=== PATIENT | female | born 1955 | race Caucasian/White ===

== ENCOUNTER 2018-09-16 20:35 | Observation (INO) ==
[2018-09-17 03:27] LABS: Basophils # 0.1 K/mcL (0.0-0.2); Basophils % 0.7 %; Eosinophils # 0.2 K/mcL (0.0-0.6); Eosinophils % 2.4 %; Hematocrit 44.3 % (35.3-44.9); Hemoglobin 14.2 g/dL (11.5-15.4); Immature Granulocytes % 0.2 % (0-4); Lymphocytes # 2.4 K/mcL (0.6-4.6); Lymphocytes % 28.6 %; Mean Corpuscular HGB Conc 32.1 g/dL (31.6-35.5); Mean Corpuscular Hemoglobin 28.9 pg (28.0-33.3); Mean Corpuscular Volume 90.2 fL (83.0-100.0); Mean Platelet Volume 10.5 fL (9.4-12.4); Monocytes # 0.7 K/mcL (0.0-1.3); Monocytes % 8.2 %; Platelet Count 242 K/mcL (140-400); Red Blood Count 4.91 M/mcL (3.82-4.97); Red Cell Distribution Width 14.8 % (11.5-14.5); Segmented Neutrophils % 59.9 %
[2018-09-17 03:47] LABS: Alanine Aminotransferase 13 Units/L (7-52); Albumin 4.2 g/dL (3.5-5.7); Albumin/Globulin Ratio 1.4 (1.1-2.2); Alkaline Phosphatase 71 Units/L (34-104); Aspartate Amino Transferase 14 Units/L (13-39); BUN/Creatinine Ratio 28 (6-26); Bilirubin,Total 0.3 mg/dL (0.3-1.0); Blood Urea Nitrogen 23 mg/dL (8-23); Calcium 9.2 mg/dL (8.6-10.3); Carbon Dioxide 22 mEq/L (23-29); Chloride 106 mEq/L (98-107); Globulin 3.1 g/dL (2.4-3.5); Glucose 100 mg/dL (70-105); Osmolality,Calculated 292 (280-300); Phosphorous 2.9 mg/dL (2.7-4.5); Potassium 3.6 mEq/L (3.5-5.1); Sodium 139 mEq/L (136-145); Total Protein 7.3 g/dL (6.4-8.9); eGFR For Non-African Americans > 60 (> 60)
--- NOTE | 2018-09-17 03:48 | Internal Med History&Physical ---
Date of Encounter: 09/17/18 Time of Encounter: 03:29 Internal Medicine - H&P: HPI Chief complaint: Stroke/Seizure History of present illness: Ms. Vealzquez is a 62 year old female with a past medical history of hypertension, COPD, significant smoking history who presented to [facility] after seizure- like episode. Patient was in her usual state of health when around 3 PM while seated she began getting pain in the left side of her head and felt her heart beating in her head. She stated the symptoms gradually moved downward to involve her left arm and left leg. She slumped over and fell to the floor and began shaking uncontrollably. Episode was witnessed by her who stated that the episode lasted for about 5 minutes after which he stated that she appea red completely drained. Speech was slurred and patient had difficulty raising her left leg and left arm. Symptoms persisted for about an hour and a half after which time he stated that she was back to her baseline. Patient had another episode while at [facility] witnessed by the staff. Per their records, patient was able to follow commands during the seizure-like event. Again appear to have weakness one side following the event. No reports of loss of bowel or bladder control. Patient has no prior history of seizures. Laboratory workup at [facility] was unremarkable. Troponins were negative 2.. EKG obtained showed normal sinus rhythm without any ischemic changes. CTA of the head and neck showed no intracranial abnormality or significant lesions. Neurology was consulted and patient was given a loading dose of Keppra. Patient received loading dose of aspirin as well. Assessment patient was lying in bed in no acute distress. Patient appears to be back to baseline. Past Med Surg Social Fam HX - Past Medical History Medical history: diabetes, hypertension Psychiatric history: anxiety - Past Surgical History Surgical History: hysterectomy - Social History Smoking Status: Current every day smoker Packs per day: 1 pack Alcohol use: none Drug use: none - Family History Mother Living Status: Cause of : ruptured pancreas Father Living Status: Cause of : Mi Brother Living Status: Still Living Hx Family Cardiac Disorders: Yes Internal Medicine - H&P: Meds Cyclobenzaprine [Flexeril] 10 mg PO HS PRN 09/17/18 [History] Lisinopril [Zestril] 40 mg PO DAILY 09/17/18 [History] Sertraline [Zoloft] 100 mg PO DAILY 09/17/18 [History] traZODone [TraZODone] 50 mg PO HS PRN 09/17/18 [History] Allergy/AdvReac Type Severity Reaction Status Date / Time No Known Allergies Allergy Verified 09/17/18 00:54 All Systems PM: A 10-system review of systems was performed and is negative for pertinent findings except as documented above in the HPI. - Constitutional Constitutional: no chills, no fever(s), no night sweats - EENT Eyes: no change in vision, no discharge, no pain, no photophobia Ears: no ear discharge, no ear pain, no tinnitus Nose, mouth and throat: no dysphagia, no nasal discharge, no neck pain, no sore throat - Cardiovascular Cardiovascular ROS IM: no chest pain, no diaphoresis, no dyspnea, no lightheadedness, no palpitations, no syncope - Respiratory Respiratory: no cough, no dyspnea, no wheezing, no excessive phlegm production - Gastrointestinal Gastrointestinal: no abdominal pain, no diarrhea, no hematemesis, no hematochezia, no melena, no nausea, no vomiting - Genitourinary Genitourinary: no change in urinary stream, no dysuria, no flank pain, no hematuria - Musculoskeletal Musculoskeletal ROS IM: no numbness, no tingling - Integumentary Integumentary IM: no rash, no unusual bruising - Neurological Neurological ROS: no confusion, no convulsions, no focal weakness, no numbness, no tingling, no tremor(s) - Hematologic/Lymphatic Hematologic/Lymphatic: no easy bruising - Constitutional Vitals: Temp Pulse Resp BP Pulse Ox 97.6 F 66 14 143/75 98 09/17/18 00:33 09/17/18 00:33 09/17/18 00:33 09/17/18 00:33 09/17/18 00:33 Exam: General: Alert and oriented 3 Skin:Normal color, no rash, no lesions. HEENT:EOM, pupils equal, round and reactive. Cardiovascular:Normal S1 & S2, no rubs, murmurs or gallops. No JVD. Pulse regular. Lungs:Normal breath sounds, no wheezes or crackles. Abdomen:Soft, non-tender, no rigidity. Extremities:No deformity, no edema or tenderness, no joint swelling or clubbing. Neurological:Normal cognition and motor skills. Cranial nerves II through XII intact. No pronator drift. Muscle strength 5 out of 5 in the upper and lower extremities. Sensation intact throughout. Pulses:Carotid and radial pulses normal +2. Rest of the physical exam is non contributory Internal Med - H&P Results - Labs CBC & Chem 7: 09/17/18 02:31 09/17/18 02:31 - Assessment and Plan (1) Seizure Current Visit: Yes Status: Acute Assessment and plan: Patient presents with 2 episodes of seizure-like activity with history suggestive of post ictal weakness and confusion. Patient has no prior history of seizures. No recent reports of head trauma. CTA of the head negative. Patient received loading dose of Keppra per neurology recommendations. -Aspiration precautions/Seizure precautions -We will check CPK -Ativan as needed -We will obtain MRI of the brain -EEG -Neurology consult (2) TIA (transient ischemic attack) Current Visit: Yes Status: Acute Assessment and plan: Patient presents with left-sided weakness and slurred speech following and seizure-like activity. Patient received loading dose of aspirin. -Neurochecks -We will allow for permissive hypertension -Echocardiogram/bilateral carotid ultrasound -MRI of the brain without contrast -Neurology consult - (3) Smoking history Current Visit: Yes Status: Acute Assessment and plan: Patient has a 50 pack year smoking history. Counseled on smoking cessation. We will provide interim patch. (4) Hypertension Current Visit: Yes Status: Acute Assessment and plan: Hold antihypertensives now to allow for permissive hypertension. Qualifiers: Hypertension type: essential hypertension Qualified Code(s): I10 - Essential (primary) hypertension (5) DVT prophylaxis Current Visit: Yes Status: Acute Assessment and plan: Subcutaneous heparin - Time Spent With Patient Total time spent is greater than 50% in coordination of care (as documented) at patient's floor/unit and/or counseling patient:
[2018-09-17] MEDS ORDERED: Naloxone 0.4 MG/ML INJ IVP PRN (04:22)
[2018-09-17 05:33] LABS: Chol/HDL Ratio 6.7 (0-4.9); Cholesterol 254 mg/dL (< 200); HDL Cholesterol 38 mg/dL (40-59); LDL Cholesterol,Calculated 170 mg/dL (0-99); LDL Cholesterol,Direct 181 mg/dL (75-193); Triglycerides 229 mg/dL (< 150)
[2018-09-17 06:46] LABS: Creatine Kinase 151 Units/L (30-223)
[2018-09-17 07:17] LABS: Estimated Average Glucose 140 mg/dl; Hemoglobin A1C 6.5 %
[2018-09-17 08:17] LABS: Bilirubin,Urine Negative (Negative); Blood,Urine Negative (Negative); Clarity,Urine Clear (Clear); Color,Urine Yellow (Yellow); Glucose,Urine (UA) Normal (Normal); Ketones,Urine Negative (Negative); Leukocyte Esterase,Urine Negative (Negative); Nitrite,Urine Negative (Negative); Protein,Urine Negative (Neg-Trace); Specific Gravity,Urine 1.024 (1.010-1.025); Urobilinogen,Urine Normal (Normal)
[2018-09-17] MEDS: Nicotine 14 MG PATCH.TD24 TD SCH (08:54)
[2018-09-17 08:59] LABS: Amphetamine Screen,Urine Negative ng/mL (Cutoff=1000); Barbiturate Screen,Urine Negative ng/mL (Cutoff=200); Benzodiazepines Screen,Urine Negative ng/mL (Cutoff=200); Cannabinoid Screen,Urine Negative ng/mL (Cutoff = 50); Cocaine Screen,Urine Negative ng/mL (Cutoff= 300); Opiate Screen,Urine Negative ng/mL (Cutoff=300); Phencyclidine Screen,Urine Negative ng/mL (Cutoff=25)
--- NOTE | 2018-09-17 10:08 | Neurology - Consult Note ---
Date of Encounter: 09/17/18 Time of Encounter: 15:53 Assessment and Plan (1) Seizure Current Visit: Yes Status: Acute Neuro consulted for evaluation of seizure-like activity Cause of seizure-like activity unknown; no signs of SUPERVISORY IT SPECIALIST infection, UA negative, no leukocytosis and afebrile. No metabolic derangements. Urine tox unremarkable Consider partial simple seizure vs pseudoseizures No prior history of seizures, no family history of seizures Reporting to seizure events with tonic-clonic activity yesterday lasting approximately 3-4 minutes duration with a postictal phase each time approximately 1 hour Received Ativan and Keppra and no return of seizure activity Neurological exam is nonfocal and nonlateralizing. PLAN: C/W Ativan as needed for seizures C/W seizure precautions CC/W Keppra EEG completed-results pending Awaiting MRI, echocardiogram and carotid duplex scan (2) Left-sided weakness Current Visit: Yes Status: Acute Patient reporting left-sided weakness and paresthesias S/P seizure event MRI imaging reveals a b/l symmetric signal changes within the high frontop arietal lobes; may reflect subacute infarcts echo-pending carotid duplex-pending c/w neurological assessments per protocol Rec pt/ot consult ASA naive; start 81mg PO now Start statin now neurology will continue to follow History of Present Illness Chief complaint: Seizures HPI: Ms. Velazquez is a 62 year old female with a PMH of anxiety, obesity, DM 2 and HTN. Initially, she presented to [facility] after experiencing a seizure event at home. She reports experiencing one additional event while at [facility]. Patient seen and examined at bedside today. She is alert and oriented 3, all information obtained from chart review and the patient. She reports that yesterday around 3 PM she was seated and began to experiencing as she quotes "throbbing, like my heart beat in my head and my entire body" and then she reports that she fell on the floor and began to shake uncontrollably all over. This episode lasted approximately 3-4 minutes and was witnessed by her . Immediately after the episode she was lethargic and confused for approximately one hour. While at [facility] she experienced the same symptoms again lasting approximately 3-4 minutes with a 1 hour episode of lethargy and confusion which is likely a postictal state. Again, the prodrome of seizure activity was a throbbing sensation all over. In addition to the repeat seizure event she is also reporting paresthesias of the right hand and face. She denies any loss of consciousness. She reports that during the seizure activity she is able to speak and communicate and somewhat follow commands but it is difficult. She was given Ativan and loaded on Keppra. No return of seizures since admission to [facility]. She denies any seizure history. Review of systems positive for left-sided paresthesias and weakness, negative for chest pain, shortness of breath, palpitations, fevers, chills, muscular/joint aches/pains, urinary symptoms. EKG shows normal sinus rhythm. CT of the head negative for acute cranial abnormality Past Med Surg Social Fam HX - Past Medical History Medical history: diabetes, hypertension Psychiatric history: anxiety - Past Surgical History Surgical History: hysterectomy - Social History Smoking Status: Current every day smoker Packs per day: 1 pack Alcohol use: none Drug use: none - Family History Mother Living Status: Cause of : ruptured pancreas Father Living Status: Cause of : Mi Brother Living Status: Still Living Hx Family Cardiac Disorders: Yes Medications and Allergies Cyclobenzaprine [Flexeril] 10 mg PO HS PRN 09/17/18 [History] Lisinopril [Zestril] 40 mg PO DAILY 09/17/18 [History] Sertraline [Zoloft] 100 mg PO DAILY 09/17/18 [History] traZODone [TraZODone] 50 mg PO HS PRN 09/17/18 [History] Allergy/AdvReac Type Severity Reaction Status Date / Time No Known Allergies Allergy Verified 09/17/18 10:56 All Systems: The remainder of the systems were reviewed and are negative Review of Systems: Review of systems positive for left-sided paresthesias and weakness, negative for chest pain, shortness of breath, palpitations, fevers, chills, muscular/joint aches/pains, urinary symptoms. REVIEW OF SYSTEMS GENERAL: Negative for any nausea, vomiting, fevers, chills NEUROLOGIC: Negative for any blurry vision, blind spots, double vision, facial asymmetry, dysphagia, dysarthria, hemiparesis, hemisensory deficits, lightheadedness, headache Positive for seizure-like activity, left-sided paresthesias and weakness (paresthesias and weakness have resolved) PSYCH: Positive anxiety HEENT: Negative for any head trauma, neck trauma, neck stiffness, photophobia, phonophobia, tinnitus CARDIAC: Positive intermittent left-sided chest pressure, dyspnea, palpitations GENITOURINARY: Negative for any dysuria, hematuria, incontinence. Physical Examination - Vital Signs Vital Signs: Initial Vital Signs Temp Pulse Resp BP Pulse Ox 97.6 F 66 14 143/75 98 09/17/18 00:33 09/17/18 00:33 09/17/18 00:33 09/17/18 00:09/17/18 00:33 - Exam Exam: Examination: General Examination: *CONSTITUTIONAL: Alert and oriented x3, no acute distress *GENERAL APPEARANCE OF PATIENT appears healthy and well groomed *EYES: pupils equal, round, reactive to light and accommodation, conjunctiva clear *CARDIOVASCULAR no peripheral edema, distal temperature normal, dorsalis pedis pulses normal. See vital signs Musculoskeletal: *GAIT AND STATION normal, with normal Romberg testing, no abnormalities such as broad base gait or spasticity *ASSESSMENT OF MUSCLE STRENGTH IN THE UPPER AND LOWER EXTREMITIES bilateral deltoid, bicep, tricep, rigging loft repairer strength, hip flexors ,anterior tibialis, dorsoflexion of the foot 4/5 *MUSCLE TONE IN THE UPPER AND LOWER EXTREMITIES normal. No abnormal movements, fasciculations or atrophy identified. Neurological: *ORIENTATION to person, situation, time and place *RECURRENT AND REMOTE MEMORY intact *ATTENTION AND CONCENTRATION are normal *LANGUAGE FUNCTION no significant aphasia or dysarthia was noted. However, her speech is somewhat slow and drawn which is abnormal for the patient *FUND OF KNOWLEDGE aware of current events, past history, vocabulary *MENTAL attention span and concentration normal. *CN II optic fundi were normal, no papilledema noted. *CN III,IV, PERRLA extraocular eye movements were full, no nystagmus and no ptosis noted. *CN V shows normal sensation and jaw opens symmetrically. *CN VII shows normal facial movement symmetrically, upper and lower bilaterally. *CN VIII shows no significant hearing loss on exam *CN IX,,X palate elevated symmetrically *CN XI normal strength in the sternocleidomastoid muscles, symmetrical shoulder shrugging. *CN XII tongue protruded in the midline, with normal strength and movement. *SENSORY EXAMINATION light touch intact *REFLEXES: deep tendon reflexes were normal and symmetrical , grade 1/4 diffusely, no pathological reflexes were noted. *CEREBELLAR TESTING normal finger to nose, heel/knee/dumont *PAIN LEVEL 0/10 Results - Laboratory Findings CBC and BMP: 09/17/18 02:31 09/17/18 02:31 Abnormal lab findings: Abnormal lab results RDW 14.8 % (11.5-14.5) H 09/17/18 02:31 Carbon Dioxide 22 mEq/L (23-29) L 09/17/18 02:31 28 (6-26) H 09/17/18 02:31 6.5 % (-5.6) H 09/17/18 02:31 Triglycerides 229 mg/dL (< 150) H 09/17/18 02:31 Cholesterol 254 mg/dL (< 200) H 09/17/18 02:31 LDL Cholesterol, Calc 170 mg/dL (0-99) H 09/17/18 02:31 VLDL Cholesterol, Calc 46 mg/dL (< 31) H 09/17/18 02:31 38 mg/dL (40-59) L 09/17/18 02:31 6.7 (0-4.9) H 09/17/18 02:31 Consult Discharge Plan - Plan Referrals: NONE,PCP [Primary Care Provider] -
--- NOTE | 2018-09-17 10:52 | EEG/EMG/Oth Biometrics Report ---
EEG Procedure Report Date of procedure: 09/17/18 EEG Procedure: Routine EEG Procedure Note: Report: This EEG was acquired with standard international 10-20 electrode placement system with EKG recording. The background activity during this EEG was characterized by presence of alpha, theta and delta activity with best frequency up to 8 Hz. The background activity was reactive to eye openings and movements. Sleep stages were not identified during this tracing. There are no electrographic seizures identified during this tracing. There are no epileptiform discharged noted during this tracing. No focal slowing identified. Photic stimulation produced no abnormalities. HV not performed during this study. EKG tracing showed no significant cardiac dysarrhythmia. Impression: This is a mildly abnormal EEG due to presence of mild diffuse background slowing. Clinical Correlation: This EEG is consistent with mild diffuse cerebral dysfunction that can be seen in patients with mild encephalopathy, metabolic/toxic, inflammatory, electrolyte derangement or patients with cognitive impairment. Clinical correlation suggested.
--- NOTE | 2018-09-17 16:36 | Internal Med Progress Note ---
Hospitalist Progress Note - Encounter Date of Encounter: 09/17/18 Time of Encounter: 16:34 - Subjective Interval History: Ms. Velazquez is a 62 year old female with a past medical history of hypertension, COPD, significant smoking history who presented to [facility] after seizure- like episode. Patient was in her usual state of health when around 3 PM while seated she began getting pain in the left side of her head and felt her heart beating in her head. She stated the symptoms gradually moved downward to involve her left arm and left leg. She slumped over and fell to the floor and began shaking uncontrollably. Episode was witnessed by her who stated that the episode lasted for about 5 minutes after which he stated that she appeared completely drained. Speech was slurred and patient had difficulty raising her left leg and left arm. Symptoms persisted for about an hour and a half after which time he stated that she was back to her baseline. Patient had another episode while at [facility] witnessed by the staff. Per their records, patient was able to follow commands during the seizure-like event. EKG obtained showed normal sinus rhythm without any ischemic changes. CTA of the head and neck showed no intracranial abnormality or significant lesions. Pt was seen and exmained at bed side. She did mention she never lost consc iousness, remember the whole seizure episode. Denied any CP / SOB - Exam Vitals: Temp Pulse Resp BP Pulse Ox 98.8 F 74 20 164/85 96 09/17/18 16:06 09/17/18 16:06 09/17/18 16:06 09/17/18 16:06 09/17/18 16:06 Exam: Gen: Alert, awake, Oriented to time,place and person Chest: Diminished breath sounds B/L, No wheezing, No crackles, No rales Heart: S1S2+ RRR No murmurs Abd: Soft, NT, BS +, No organomegaly Ext: No edema, pulses are palpable, No calf tenderness Neuro : Benign findings Skin: No rash. - Assessment and Plan (1) Seizure Current Visit: Yes Status: Acute Assessment and Plan: questionable seizure not convinced with her presentation EEG showed encephalopathy changes Appreciate neurology recommendations (2) TIA (transient ischemic attack) Current Visit: Yes Status: Acute Assessment and Plan: Reviewed Brain MRI showed subacute infarcts in b/l frontal and parietal lobes will f/u on 2 D Echo and Carotid Doppler cont ASA and Statin Appreciate neurology recommendations (3) Smoking history Current Visit: Yes Status: Acute Assessment and Plan: Counseled to quit smoking placed on nicotine patch (4) DVT prophylaxis Current Visit: Yes Status: Acute Assessment and Plan: Subcutaneous heparin (5) Hypertension Current Visit: Yes Status: Acute Assessment and Plan: fairly controlled resumed all home meds - Time Spent with Patient Total time spent is greater than 50% in coordination of care (as documented) at patient's floor/unit and/or counseling patient: Internal Medicine: Result - Labs CBC & Chem 7: 09/17/18 02:31 09/17/18 02:31 Labs: Short CBC 09/17/18 Range/Units 02:31 WBC 8.4 (4.3-11.1) K/mcL Hgb 14.2 (11.5-15.4) g/dL Hct 44.3 (35.3-44.9) % Plt Count 242 (140-400) K/mcL Neutrophils # 5.0 (1.6-8.9) K/mcL BMP 09/17/18 02:31 Sodium 139 Potassium 3.6 Chloride 106 Carbon Dioxide 22 L BUN 23 Creatinine 0.81 Glucose 100 Calcium 9.2 Liver Function 09/17/18 Range/Units 02:31 Total Bilirubin 0.3 (0.3-1.0) mg/dL AST 14 (13-39) Units/L ALT 13 (7-52) Units/L Alkaline Phosphatase 71 (34-104) Units/L Albumin 4.2 (3.5-5.7) g/dL Urine 09/17/18 Range/Units 07:45 Urine Color Yellow (Yellow) Urine Clarity Clear (Clear) Urine pH 6.0 (5.0-8.0) pH Units Ur Specific [place] 1.024 (1.010-1.025) Urine Protein Negative (Neg-Trace) mg/dL Urine Glucose (UA) Normal (Normal) mg/dL - Impressions Impressions Brain MRI 09/17/18 04:23 IMPRESSION: Nonspecific, bilaterally symmetric signal changes within the high frontoparietal lobes. These could reflect subacute infarcts. Recommend repeating exam with IV contrast for further characterization. The findings were sent to the Radiology Results Communication Center at 2:56 pm on 09/17/2018to be communicated to a licensed caregiver. D/ / Moises Lancaster MD / Moiess Lancaster MD Interpreting Provider: Moises Lancaster MD Consult Discharge Plan - Plan Referrals: NONE,PCP [Primary Care Provider] - (5) Hypertension Qualifiers: Hypertension type: essential hypertension Qualified Code(s): I10 - Essential (primary) hypertension
--- NOTE | 2018-09-17 17:34 | Electrocardiograph Report ---
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
[2018-09-17] MEDS ORDERED: Perflutren Lipid Microsphere 1.3 ML in 0.9 % Sodium Chloride 8.7 ML IVP ONE (17:39)
[2018-09-17] MEDS: levETIRAcetam 250 MG TABLET PO SCH (18:28)
[2018-09-17] MEDS: Aspirin 81 MG TAB.CHEW PO SCH (18:28)
[2018-09-18] MEDS: levETIRAcetam 250 MG TABLET PO SCH (05:35)
[2018-09-18 06:55] LABS: Alanine Aminotransferase 15 Units/L (7-52); Albumin 4.6 g/dL (3.5-5.7); Albumin/Globulin Ratio 1.5 (1.1-2.2); Alkaline Phosphatase 81 Units/L (34-104); Aspartate Amino Transferase 15 Units/L (13-39); BUN/Creatinine Ratio 21 (6-26); Bilirubin,Total 0.4 mg/dL (0.3-1.0); Blood Urea Nitrogen 20 mg/dL (8-23); Calcium 10.2 mg/dL (8.6-10.3); Carbon Dioxide 25 mEq/L (23-29); Chloride 104 mEq/L (98-107); Glucose 118 mg/dL (70-105); Osmolality,Calculated 294 (280-300); Potassium 4.2 mEq/L (3.5-5.1); Sodium 140 mEq/L (136-145); Total Protein 7.6 g/dL (6.4-8.9); eGFR For Non-African Americans > 60 (> 60)
[2018-09-18 07:08] LABS: Estimated Average Glucose 137 mg/dl; Hemoglobin A1C 6.4 %
[2018-09-18] MEDS: Nicotine 14 MG PATCH.TD24 TD SCH (08:36)
[2018-09-18] MEDS: Aspirin 81 MG TAB.CHEW PO SCH (08:36)
[2018-09-18] MEDS ORDERED: traZODone 50 MG TABLET PO PRN (08:52)
[2018-09-18] MEDS ORDERED: Lisinopril 20 MG TABLET PO SCH (09:00)
--- NOTE | 2018-09-18 10:44 | Neurology Progress Note ---
Date of Encounter: 09/18/18 Time of Encounter: 10:38 Assessment and Plan (1) Seizure Status: Acute Neuro consulted for evaluation of seizure-like activity No prior history of seizures, no family history of seizures Reporting to seizure events with tonic-clonic activity yesterday lasting approximately 3-4 minutes duration with a postictal phase each time approximately 1 hour Neurological exam today continues to be nonfocal and nonlateralizing. No return of seizure-like activity PLAN: Okay to discontinue Keppra EEG completed was essentially a normal study (2) Left-sided weakness Status: Acute Patient reporting left-sided weakness and paresthesias MRI imaging reveals a b/l symmetric signal changes within the high frontoparietal lobes; may reflect subacute infarcts Findings concerning for embolic source No h/o a-fib echo-EF 60-65%, no PFO, no thrombus identified, no valvular dysfunction carotid duplex-patient appears to have 40-59% stenosis in the right ICA and other non-stenotic plaque bilaterally Recommend antiplatelet therapy with aspirin; will need Rx a DC C/W statin at discharge Neurological assessment today again reveals a slowed speech pattern but no significant dysarthria. Otherwise the neuro exam is nonfocal. She is continuing to progress back to baseline. She is okay to discharge at the discretion of the primary team. May benefit from cardiology follow-up and cardiac rhythm monitoring with concerns for possible embolic source involving stroke and left parietal cortex Plan has been discussed with primary team. Subjective Principal diagnosis: subacute infarct and seizures Interval history: Patient seen in follow-up for seizure-like activity and subacute CVA. Denies any return of seizure-like activity since admission. She denies any new neurological deficits and clinically, she remains stable overnight. Objective - Constitutional Vitals: Temp Pulse Resp BP Pulse Ox 98.3 F 81 16 133/81 95 09/18/18 07:17 09/18/18 07:17 09/18/18 07:17 09/18/18 07:17 09/18/18 07:17 Exam: Examination: General Examination: *CONSTITUTIONAL: Alert and oriented x3, no acute distress *GENERAL APPEARANCE OF PATIENT appears healthy and well groomed *EYES: pupils equal, round, reactive to light and accommodation, conjunctiva clear *CARDIOVASCULAR no peripheral edema, distal temperature normal, dorsalis pedis pulses normal. See vital signs Musculoskeletal: *GAIT AND STATION normal, with normal Romberg testing, no abnormalities such as broad base gait or spasticity *ASSESSMENT OF MUSCLE STRENGTH IN THE UPPER AND LOWER EXTREMITIES bilateral deltoid, bicep, tricep, unix architect strength, hip flexors ,anterior tibialis, dorsoflexion of the foot 4/5 *MUSCLE TONE IN THE UPPER AND LOWER EXTREMITIES normal. No abnormal movements, fasciculations or atrophy identified. Neurological: *ORIENTATION to person, situation, time and place *RECURRENT AND REMOTE MEMORY intact *ATTENTION AND CONCENTRATION are normal *LANGUAGE FUNCTION no significant aphasia or dysarthia was noted. However, speech remains slow and drawn which is abnormal for the patient *FUND OF KNOWLEDGE aware of current events, past history, vocabulary *MENTAL attention span and concentration normal. *CN II optic fundi were normal, no papilledema noted. *CN III,IV, PERRLA extraocular eye movements were full, no nystagmus and no ptosis noted. *CN V shows normal sensation and jaw opens symmetrically. *CN VII shows normal facial movement symmetrically, upper and lower bilaterally. *CN VIII shows no significant hearing loss on exam *CN IX,,X palate elevated symmetrically *CN XI normal strength in the sternocleidomastoid muscles, symmetrical shoulder shrugging. *CN XII tongue protruded in the midline, with normal strength and movement. *SENSORY EXAMINATION light touch intact *REFLEXES: deep tendon reflexes were normal and symmetrical , grade 1/4 diffusely, no pathological reflexes were noted. *CEREBELLAR TESTING normal finger to nose, heel/knee/dumont *PAIN LEVEL 0/10 Results - Laboratory Findings CBC and BMP: 09/17/18 02:31 09/18/18 06:16 Abnormal lab findings: Abnormal lab results RDW 14.8 % (11.5-14.5) H 09/17/18 02:31 Carbon Dioxide 22 mEq/L (23-29) L 09/17/18 02:31 28 (6-26) H 09/17/18 02:31 Glucose 118 mg/dL (70-105) H 09/18/18 06:16 POC Glucose 106 mg/dL (70-99) H 09/17/18 21:05 6.4 % (-5.6) H 09/18/18 06:16 Triglycerides 229 mg/dL (< 150) H 09/17/18 02:31 Cholesterol 254 mg/dL (< 200) H 09/17/18 02:31 LDL Cholesterol, Calc 170 mg/dL (0-99) H 09/17/18 02:31 VLDL Cholesterol, Calc 46 mg/dL (< 31) H 09/17/18 02:31 38 mg/dL (40-59) L 09/17/18 02:31 6.7 (0-4.9) H 09/17/18 02:31 Consult Discharge Plan - Plan Instructions: Ischemic Stroke (DC), Hemorrhagic Stroke (DC), Chronic Hypertension (DC) Referrals: Francisco Pereyra DO [Partnered Physician] - (Appointment has been requested. Our offices will call with an appointment time and date.) Cachorro Salgado DO [Partnered Physician] - (Appointment has been requested. Our offices will call with an appointment time and date. If you do not hear from us please call [phone], and schedule an appointment.) Bria Schmid MD [Partnered Physician] - (Appointment has been requested. Our offices will call you with an appointment time and date. If you do not hear from us, please call [phone] and schedule an appointment.) Prescriptions: RX: Aspirin 81 mg PO DAILY #30 tab.chew Atorvastatin Calcium [Lipitor] 80 mg PO HS #30 tab RX: Nicotine Patch [Nicoderm] 21 mg TD DAILY #30 patch.td24
[2018-09-18 11:37] VITALS: BP 153/73
--- NOTE | 2018-09-18 12:25 | Discharge Summary ---
- NOTES TO OUTPATIENT PROVIDER Notes to Outpatient Provider: f/u with PCP in one week. f/u with Neurology in 1-2 weeks. f/u with Cardiology in 2 weeks. Please wear event monitor for 4 weeks. Please quit smoking. Date of Encounter: 09/18/18 Time of Encounter: 12:22 - Discharge Diagnosis (1) TIA (transient ischemic attack) Priority: Primary Status: Acute (2) CVA (cerebrovascular accident) Priority: Secondary Status: Chronic Qualifiers: CVA mechanism: embolism Precerebral and cerebral artery: unspecified cerebral artery Qualified Code(s): I63.40 - Cerebral infarction due to embolism of unspecified cerebral artery (3) Seizure Priority: Primary Status: Acute (4) Smoking history Priority: Secondary Status: Acute (5) DVT prophylaxis Priority: Secondary Status: Acute (6) Hypertension Priority: Secondary Status: Acute Qualifiers: Hypertension type: essential hypertension Qualified Code(s): I10 - Kallie hurst (primary) hypertension Hospital course: Ms. Velazquez is a 62 year old female with a past medical history of hypertension, COPD, significant smoking history who presented to [facility] after seizure- like episode. Patient was in her usual state of health when around 3 PM while seated she began getting pain in the left side of her head and felt her heart beating in her head. She stated the symptoms gradually moved downward to involve her left arm and left leg. She slumped over and fell to the floor and began shaking uncontrollably. Episode was witnessed by her who stated that the episode lasted for about 5 minutes after which he stated that she appeared completely drained. Speech was slurred and patient had difficulty raising her left leg and left arm. Symptoms persisted for about an hour and a half after which time he stated that she was back to her baseline. Patient had another episode while at [facility] witnessed by the staff. Per their records, patient was able to follow commands during the seizure-like event. EKG obtained showed normal sinus rhythm without any ischemic changes / arrythamias. CTA of the head and neck showed no intracranial abnormality or significant lesions. Her brain MRI showed subacute infarcts in b/l frontal and parietal lobes concerning for embolic CVA. Pt is ASA naive pt, so started her on ASA 81mg. Pt's LDL cholesterol was 170. Placed her on Lipitor 80mg. Her Carotid doppler showed 40- 59% stenosis in right ICA and other non-stenotic plaque bilaterally. She was not a candidate for tPA due to sub acute CVA. Will d/c her home in stable condition today with event monitor and out pt f/u with Cardiology , as well as neurology. - Time Spent with Patient Total time spent providing and/or coordinating discharge services: - Discharge Medications Prescriptions: New Aspirin 81 mg PO DAILY #30 tab.chew Atorvastatin Calcium [Lipitor] 80 mg PO HS #30 tab Nicotine Patch [Nicoderm] 21 mg TD DAILY #30 patch.td24 Continued Cyclobenzaprine [Flexeril] 10 mg PO HS PRN PRN Reason: Insomnia traZODone [TraZODone] 50 mg PO HS PRN PRN Reason: Insomnia Sertraline [Zoloft] 100 mg PO DAILY Lisinopril [Zestril] 40 mg PO DAILY Home Medications: Cyclobenzaprine [Flexeril] 10 mg PO HS PRN 09/17/18 [History] Lisinopril [Zestril] 40 mg PO DAILY 09/17/18 [History] Sertraline [Zoloft] 100 mg PO DAILY 09/17/18 [History] traZODone [TraZODone] 50 mg PO HS PRN 09/17/18 [History] Aspirin 81 mg PO DAILY #30 tab.chew 09/18/18 [Rx] Atorvastatin Calcium [Lipitor] 80 mg PO HS #30 tab 09/18/18 [Rx] Nicotine Patch [Nicoderm] 21 mg TD DAILY #30 patch.td24 09/18/18 [Rx] Allergies/Adverse Reactions: Allergy/AdvReac Type Severity Reaction Status Date / Time No Known Allergies Allergy Verified 09/17/18 10:56 Date of admission: 09/16/18 23:56 Primary care physician: PCP NONE Consults: 09/17/18 04:23 Consult to Neurology [CONS] Routine Consulting Provider: Neurology [facility] Reason for Consult: CVA/SEIZURE Call Completed: No 09/17/18 11:53 Consult to Interpret Exam [CONS] Routine Consulting Provider: Bria Schmid Consult to Interpret Exam: Interpret EEG 09/17/18 17:16 Consult to Occupational Therapy [CONS] Routine Comment: Evaluate, develop and implement POC Reason for Consult: STROKE Does patient have active BEDREST order?: No Is patient medically & hemodynamically stable?: Yes Consult to Physical Therapy [CONS] Routine Comment: Evaluate, develop and implement POC Reason for Consult: STROKE Does patient have active BEDREST order?: No Is patient medically & hemodynamically stable?: Yes - Constitutional Vitals: Temp Pulse Resp BP Pulse Ox 98.5 F 79 16 153/73 94 09/18/18 11:36 09/18/18 11:36 09/18/18 11:36 09/18/18 11:36 09/18/18 11:36 General appearance: Present: A&O X 3, no acute distress, answers questions appropriately Exam: Gen: Alert, awake, Oriented to time,place and person Chest: Diminished breath sounds B/L, No wheezing, No crackles, No rales Heart: S1S2+ RRR No murmurs Abd: Soft, NT, BS +, No organomegaly Ext: No edema, pulses are palpable, No calf tenderness Neuro : Benign findings Skin: No rash. - Patient Status Disposition: Home, Self-Care Condition: Good - Discharge Instructions Follow Up With: Francisco Pereyra DO [Partnered Physician] - Cachorro Salgado DO [Partnered Physician] - (Appointment has been requested. Our offices will call with an appointment time and date. If you do not hear from us please call [phone], and schedule an appointment.) Bria Schmid MD [Partnered Physician] - (Appointment has been requested. Our offices will call you with an appointment time and date. If you do not hear from us, please call [phone] and schedule an appointment.) - Diet and Activity Activity: increase activity as tolerated Diet: low salt diet
== END 2018-09-18 14:16 | disposition home or self-care (01) ==
LOC: 3BNU
PROVIDERS: ADMIT Internal Medicine; ATTEND Internal Medicine